=== PATIENT | male | born 1980 | race Caucasian/White ===

== ENCOUNTER 2018-02-09 20:49 | Emergency (ER) | payer OTHER ==
[~2018-02-09] VITALS: Ht 170.2 cm; Wt 107.0 kg
[2018-02-09 21:04] VITALS: BP 138/87
[2018-02-09] MEDS ORDERED: ULTRAM 50MG TAB50 MG PO (21:51)
[2018-02-09] MEDS ORDERED: KEFLEX500 M1 PO (21:51)
== END 2018-02-09 21:55 | disposition home or self-care (01) ==
LOC: ER 20:49
DX: S61.011A Laceration without foreign body of right thumb without damage to nail, initial encounter (principal); E11.9 Type 2 diabetes mellitus without complications; Z23 Encounter for immunization; W26.8XXA Contact with other sharp object(s), not elsewhere classified, initial encounter; Y93.89 Activity, other specified; Y92.89 Other specified places as the place of occurrence of the external cause; Y99.8 Other external cause status